=== PATIENT | female | born 1960 | race African-American/Black ===

== ENCOUNTER 2016-03-09 15:33 | Emergency (ER) | payer SELFPAY ==
[2016-03-09] MEDS ORDERED: FENTANYL CITRATE INJ/PF 100 MCG/2 ML AMPUL ONE ×4 (16:42→18:19)
--- NOTE | 2016-03-09 16:56 | EKG REPORT ---
SEVERITY:- NORMAL ECG - SINUS RHYTHM : Confirmed by: Amberly Mehta MD 09-Mar-2016 16:56:24
[2016-03-09 16:57] LABS: ABSOLUTE LYMPHOCYTES (AUTO) 1.8 10^3/uL (0.5-4.7); ABSOLUTE MONOCYTES (AUTO) 0.7 10^3/uL (0.1-1.4); ABSOLUTE NEUT (AUTO) 4.2 10^3/uL (1.7-8.2); BASOPHILS % (AUTO) 0.6 % (0-2); EOSINOPHILS % (AUTO) 0.4 % (0-6); HEMATOCRIT 36.6 % (36.0-47.0); HEMOGLOBIN 12.5 g/dL (12.0-15.5); HGB HCT DIFFERENCE 0.9; LYMPHOCYTES % (AUTO) 26.9 % (13-45); MEAN CORPUSCULAR HEMOGLOBIN 28.4 pg (27.0-33.4); MEAN CORPUSCULAR VOLUME 84 fl (80-97); MONOCYTES % (AUTO) 10.3 % (3-13); RED BLOOD COUNT 4.38 10^6/uL (3.72-5.28); RED CELL DISTRIBUTION WIDTH 14.3 % (11.5-14.0); SEGMENTED NEUTROPHILS % (AUTO) 61.8 % (42-78); WHITE BLOOD COUNT 6.8 10^3/uL (4.0-10.5)
--- NOTE | 2016-03-09 17:03 | ER Document Report ---
ED General - General Information source: Patient - HPI Patient complains to provider of: Diffuse Onset: Just prior to arrival Onset/Duration: Sudden Associated symptoms: None Similar symptoms previously: No <JONI PEREZ - Last Filed: 03/09/16 19:44> <SHAYY MERCER - Last Filed: 03/18/16 01:18> - General Chief Complaint: Syncope Stated Complaint: SYNCOPAL EPISODE Notes: Patient is a 55-year-old female presenting to the emergency department concerned of acute onset of severe diffuse abdominal pain which radiates straight into her back and syncopal episode. She states she was fine this morning, and the pain started just after lunch at approximately 1430. Patient has a history of hypertension which has been untreated for the past 2 months. Patient states that the pain does not even compared to labor, it is higher than it 10 on a scale of 1-10. Patient has a history of gastric bypass in 2010 and family history of heart disease. (JONI PEREZ) Past Medical History - General Information source: Patient - Social History Smoking Status: Never Smoker Cigarette use (# per day): No Chew tobacco use (# tins/day): No Family History: Reviewed & Not Pertinent, Hyperlipidemia, Hypertension - Past Medical History Cardiac Medical History: Reports: Hx Hypertension Past Surgical History: Reports: Hx Cholecystectomy, Hx Gastric Bypass Surgery - 2010 <JONI PEREZ - Last Filed: 03/09/16 19:44> Review of Systems - Review of Systems Constitutional: No symptoms reported EENT: No symptoms reported Cardiovascular: See HPI, Syncope Respiratory: No symptoms reported Gastrointestinal: See HPI, Abdominal pain, Nausea, Vomiting Genitourinary: No symptoms reported Female Genitourinary: No symptoms reported Musculoskeletal: No symptoms reported Skin: No symptoms reported Hematologic/Lymphatic: No symptoms reported Neurological/Psychological: No symptoms reported -: Yes All other systems reviewed and negative <JONI PEREZ - Last Filed: 03/09/16 19:44> Physical Exam - Vital signs Interpretation: Hypertensive - General General appearance: Alert - HEENT Head: Normocephalic, Atraumatic Eyes: Normal Pupils: PERRL - Respiratory Respiratory status: No respiratory distress Chest status: Nontender Breath sounds: Normal Chest palpation: Normal - Cardiovascular Rhythm: Regular Heart sounds: Normal auscultation Murmur: No Pulses: Normal: Radial, Femoral Normal capillary refill: Yes - Abdominal Inspection: Healed incision Tenderness: Tender - Diffuse tenderness to palpation. No rigidity. Active bowel sounds. - Back Back: Normal, Nontender - Not tender to palpation, patient states the pain is deep inside. - Extremities General upper extremity: Normal inspection, Nontender, Normal color, Normal ROM , Normal temperature General lower extremity: Normal inspection, Nontender, Normal color, Normal ROM , Normal temperature - Neurological Neuro grossly intact: Yes Cognition: Normal Orientation: AAOx4 [place] Coma Scale Eye Opening: Spontaneous [place] Coma Scale Verbal: Oriented [place] Coma Scale Motor: Obeys Commands Baljinder Coma Scale Total: 15 Speech: Normal Motor strength normal: LUE, RUE, LLE, RLE - Psychological Associated symptoms: Normal affect, Normal mood - Skin Skin Temperature: Warm Skin Moisture: Dry Skin Color: Pale <JONI PEREZ - Last Filed: 03/09/16 19:44> Course - Laboratory Result Diagrams: 03/09/16 16:40 03/09/16 16:40 - Consults Dr. Morley Time consulted: 16:46 Osei Time consulted: 17:02 Woo Time consulted: 17:17 <JONI PEREZ - Last Filed: 03/09/16 19:44> - Laboratory Result Diagrams: 03/09/16 16:40 03/09/16 16:40 <SHAYY MERCER - Last Filed: 03/18/16 01:18> - Re-evaluation Re-evalutation: 03/09/16 17:21 I personally performed the services described in the documentation, reviewed and edited the documentation which was dictated to my scribe in my presence, and it accurately records my words and actions. Patient presents emergency from acute onset of severe abdominal pain back pain and syncope. Says she's never had pain like this in her life to cause her to pass out at work. Upon history taking the past several months she's had abdominal pain after eating but has not sought any treatment for it. Nor has she been on her blood pressure medications on a regular basis. On ED arrival her blood pressures 169/109 on the monitor heart rate is 68 respiratory rate 1800% O2 sat. I immediately assessed at the bedside acute clinical concerns with the mccain pain back pain elevated blood pressure and syncope. 2 large bore IVs established called CT scan or signing consent emergently went to the CT scanner with her called the radiologist from the CT scanner and call me right back and said the patient has acute mesenteric ischemia. At this point bilateral upper blood pressures were obtained 159/94 in the right 162/89 on the left. Given 2 doses of IV fentanyl which is controlled the pain. Serial abdominal examinations no tenderness guarding rebound rigidity equal bilateral dorsalis pedis posterior tibial and femoral pulses with good perfusion. Immediately started on a heparin drip. I contacted Dr. farooq who is our surgeon here he is not vascular surgery cannot manage this patient but is asked to do an ED consult prior to transfer. Spoke with by [facility] the vascular surgeon accepted at once to go [facility] via helicopter. And currently waiting for the ER physician calling back at this point. Patient is currently awake alert with pain control. 03/09/16 19:57 Dr. Farooq at bedside discussing situation with patient and daughter. After a long discussion and weighing the risks and the benefits we were told that the helicopter was not flying. He with antacids with getting a ground crew together. He spoke with the patient and family member daughter at the bedside and decision was made to take the patient to the operating room to try to on to force potential SMA vein potentially restore blood flow and resected part are: If it had been necrotic. Patient gave consent was on the way to the operating room EMS arrived for transfer to [facility]. At this point I was in taking care of critical trauma patient. The transport team stated they could not wait until the surgery was done at they would have to leave at this point. The ED staff in conjunction with the patient contacted Dr. Miranda who told them to let the patient be transferred at this point. Patient with significant risk factors for necrosis of the bowel potentially requiring intraoperative repair. I did speak with the accepting vascular surgeon at [facility] who will be accepting the patient to the emergency department. The refiner operator tried to call the emergency department, and stated to me that they stated that the charge nurse would call me back. No one ever called me back from the emergency department to accept the patient. I was told that the patient was being accepted under the vascular surgeon. patient is in serious condition but stable for transport to the [facility] with a vascular surgeon which we do not currently have at our facility. (SHAYY MERCER) - Vital Signs Vital signs: Temp Pulse Resp BP Pulse Ox 13 178/104 H 94 03/09/16 17:01 03/09/16 16:13 03/09/16 17:01 - Laboratory Laboratory results interpreted by me: 03/09/16 03/09/16 16:40 16:40 RDW 14.3 H BUN 21 H Glucose 126 H (JONI PEREZ) (SHAYY MERCER) - Consults Dr. Morley Reason for consultation: 03/09/16 16:[address] with patient and contacted Dr. Morley to inform her that the patient's CT will be headed her way. Dr. Morley confirms and states that she will review [facility]. (JONI PEREZ) [facility] Reason for consultation: 03/09/16 17:02 Contacted [facility]. They will have doctor return phone call. (JONI PEREZ) [facility] Reason for consultation: 03/09/16 17:[address] Berkowitz about patient's case. Dr. Berkowitz recommends ED to ED transfer. Will await ED phone call. (JONI PEREZ) Critical Care Note - Critical Care Note Total time excluding time spent on procedures (mins): 70 <SHAYY MERCER - Last Filed: 03/18/16 01:18> Discharge <JONI PEREZ - Last Filed: 03/09/16 19:44> <SHAYY MERCER - Last Filed: 03/18/16 01:18> - Discharge Clinical Impression: Acute mesenteric ischemia Condition: Serious Disposition: [facility] Scribe Documentation - Scribe acting as scribe for :: Kwan <JONI PEREZ - Last Filed: 03/09/16 19:44> <SHAYY MERCER - Last Filed: 03/18/16 01:18> - Scribe Written by Scribe:: SHAYY MERCER DO, SCRIBE 03/09/16 [id number] (JONI PEREZ) (SHAYY MERCER)
[2016-03-09] MEDS: HEPARIN SODIUM,PORCINE/D5W 25,000 UNIT/250 ML RTUINJ IV ONE (17:10)
[2016-03-09 17:21] LABS: ALANINE AMINOTRANSFERASE 22 U/L (9-52); ALBUMIN 3.8 g/dL (3.5-5.0); ALKALINE PHOSPHATASE 119 U/L (38-126); ANION GAP 11 (5-19); ASPARTATE AMINO TRANSFERASE 26 U/L (14-36); BILIRUBIN,TOTAL 0.4 mg/dL (0.2-1.3); BLOOD UREA NITROGEN 21 mg/dL (7-20); CALCIUM 9.4 mg/dL (8.4-10.2); CARBON DIOXIDE 27 mmol/L (22-30); CHLORIDE 105 mmol/L (98-107); CREATINE KINASE 97 U/L (30-135); CREATININE RESULT 0.73 mg/dL (0.52-1.25); GLUCOSE 126 mg/dL (75-110); POTASSIUM 3.8 mmol/L (3.6-5.0); SODIUM 143.1 mmol/L (137-145); TOTAL PROTEIN 6.8 g/dL (6.3-8.2)
[2016-03-09] MEDS ORDERED: ONDANSETRON HCL INJ/PF 4 MG/2 ML SDV ONE (17:38)
[2016-03-09 17:43] VITALS: BP 178/104
[2016-03-09 18:15] LABS: CREATINE KINASE MB 0.34 ng/mL (<4.55)
[2016-03-09 18:18] LABS: TROPONIN I < 0.012 ng/mL
[2016-03-09] MEDS ORDERED: HYDROMORPHONE HCL INJ/PF 2 MG/ML AMPULE ONE (18:19)
[2016-03-09] MEDS ORDERED: MIDAZOLAM 2 MG/2 ML INJ ONE (18:20)
[2016-03-09] MEDS ORDERED: PROPOFOL INJ 200 MG/20 ML VIAL IV ONE (18:20)
--- NOTE | 2016-03-09 21:09 | PDOC CONSULTATION ---
History of Present Illness Admission Date/PCP: 03/09/16 18:07 History of Present Illness: ALBERTO POLK is a 55 year old female who had the acute onset of severe abdominal pain after eating at 2:30 PM today. She complains that the pain was 11/10. The pain was constant. The pain radiated to her back. She took 2 Aleve to no avail. She reports that in addition to the abdominal pain she had chills, subjective fever, nausea, dry heaves but no significant vomitus, dizziness/lightheadedness, shortness of breath due to pain. She also reports that she had some bowel incontinence while dry heaving. She reports that she had a soft to loose bowel movement earlier today, which is normal for her. She denies any blood in her stools, pain with defecation, urinary symptoms, chest pain, seizures, tremors. She has a history of open gallbladder surgery in 1985 , gastric bypass surgery in 2010 and abdominoplasty in 2012. She reports that for the last 4-5 years, she has experienced intermittent abdominal pain. She reports this pain occurs approximately every 2 weeks. The pain is severe and is accompanied by bloating and a firm abdomen. She reports the pain has been so bad in the past that she has passed out. She denies passing out today. Typically she takes 2 Aleve for these episodes and gradually experiences resolution. She reports the pain today was more severe than her usual bout of abdominal pain, but her abdomen is not as bloated or firm. A CT scan was performed urgently by ER staff which showed whirling of the mesentery and questionable superior mesenteric vein compression/congestion. Surgery was consulted. Medications: Metoprolol 10 mg. Aleve when necessary, usually 2 tabs every 2 weeks. Allergies: Hydrocodone, lethargy. Past Medical History Cardiac Medical History: Reports: Hypertension Neurological Medical History: Reports: Migraine - None in 4-5 years. Past Surgical History Past Surgical History: Reports: Cholecystectomy, Gastric Bypass Surgery - 2010, Other - Abdominoplasty 2012, breast reduction 2009. Social History Information Source: Patient Lives with: Alone Smoking Status: Never Smoker Frequency of Alcohol Use: Rare Hx Recreational Drug Use: No Drugs: None Hx Prescription Drug Abuse: No Family History Family History: CAD, DM, Hypertension, Other - Congestive heart failure Parental Family History Reviewed: Yes Children Family History Reviewed: Yes Sibling(s) Family History Reviewed.: Yes Review of Systems All systems: reviewed and no additional remarkable complaints except as stated Physical Exam Vital Signs: Temp Pulse Resp BP Pulse Ox 13 178/104 H 94 03/09/16 17:01 03/09/16 16:13 03/09/16 17:01 General appearance: PRESENT: no acute distress Eye exam: PRESENT: EOMI Mouth exam: PRESENT: tongue midline Respiratory exam: PRESENT: clear to auscultation yaya Cardiovascular exam: PRESENT: RRR GI/Abdominal exam: PRESENT: soft, tenderness - Tender primarily in the right lower quadrant with some minimal tenderness in the left lower quadrant as well. , other - Multiple healed incisions.. ABSENT: firm, guarding, rebound, rigid Extremities exam: ABSENT: pedal edema Musculoskeletal exam: ABSENT: deformity Neurological exam: PRESENT: alert - Initially somewhat sleepy/sedated, resolved rapidly., oriented to person, oriented to place, oriented to time, oriented to situation Skin exam: PRESENT: normal color. ABSENT: jaundice Results Laboratory Results: White count normal at 6.8; and percent neutrophils and absolute neutrophils are in normal ranges as well. Hemoglobin 12.5. Platelets 355. BMP essentially normal. Sodium 143, potassium 3.8, chloride 105, bicarbonate 27 , BUN 21-elevated, creatinine 0.73, glucose 126-elevated. Lactic acid normal at 1.5. CK normal at 97. CK-MB and troponin are negative. LFTs normal: protein 6.8, albumin 3.8, total bilirubin 0.4, direct bilirubin 0, AST 26, ALT 22, alkaline phosphatase 119. Impressions: Abdomen/Pelvis CTA 03/09/16 00:00 IMPRESSION: 1. Findings consistent with small bowel volvulus with swirling of the vascular structures about the axis of the SMA. There is associated venous obstruction with mesenteric edema and bowel wall thickening. 2. Status post previous gastric bypass surgery. 3. Moderate biliary tree dilatation without evidence of obstructing abnormality. MRCP should be considered for further evaluation. 4. 3 cm fluid collection in the anterior abdominal wall at the umbilicus with differential including urachal cyst and fluid in a hernia sac. 5. Status post cholecystectomy. Chest/Abdomen CTA 03/09/16 00:00 IMPRESSION: 1. No evidence of pulmonary embolus. 2. No significant abnormality involving the thoracic aorta. 3. 1.4 cm nodule in left lobe of the thyroid for which ultrasound should be considered. Status: Image reviewed by me Assessment & Plan - Diagnosis (1) MESENTERIC VOLVULUS Is this a current diagnosis for this admission?: YesPlan: See below (2) Chronic mesenteric ischemia Is this a current diagnosis for this admission?: YesPlan: Once consulted by the ED physician with the CT findings, I recommended transfer to a tertiary care center with vascular surgeons/vascular interventionalists, as well as immediate initiation of heparin drip. Heparin drip was initiated within minutes, as it was running when I presented to the ED to assess the patient shortly after being called. Given her history of severe bouts of abdominal pain which resolved spontaneously, she may have intermittent volvulus of her mesentery. Today her abdominal pain started out as very severe, but improved during her time in the EGD. This may be attributable to a spontaneous detorsing, and/or the initiation of the heparin drip. She did have short acting narcotics prior to my arrival, but any effects as evidenced by sleepiness seemed to wear off shortly after beginning the interview, thus I did not feel pain meds were masking any potential pain. Despite what would seem a significant CT finding, the patient's exam was not peritoneal and her labs were essentially normal, perhaps indicating adequate flow through the superior mesenteric vein. I spoke the radiologist reviewing the images and report, and my impression in conversation from the radiologist was that complete occlusion was not definitive, but rather findings of vascular compression/congestion were apparent. Initially air transport was available, however, it was then canceled due to weather. The decision to proceed to the OR for exploratory laparotomy was weighed against the timing of ground transport. At this point ground transport was available. I spoke with the radiologist as well as Dr. Ron Mondragon and Dr. Guzman Monterroso. Dr. Mondragon and Dr. Monterroso were available to help with the case should we proceed to the OR. After reviewing the case, they recommend transfer. Given the lack of an acute abdomen and normal labs, as well as the immediate availability of ground transport, I recommended ground transport to [facility] with a vascular surgeon aware of the case and accepting transfer.
== END 2016-03-09 19:59 | disposition short-term general hospital (02) ==
LOC: ER 15:33 → EH 18:07 → UNDOADMOB 18:07 → UNDODISOB 18:44 → ER 19:59
DX: K55.019 Acute (reversible) ischemia of small intestine, extent unspecified (principal); K56.2 Volvulus; R55 Syncope and collapse; R10.9 Unspecified abdominal pain; I10 Essential (primary) hypertension; Z98.84 Bariatric surgery status; Z90.49 Acquired absence of other specified parts of digestive tract
CPT/HCPCS: 93005; 99291; 51702; 96375; 96365; 96366; 36415; 82553; 82550; 85025; 80053; 84484; 83605; 71275; 74174; 93010; J1644; J3010; J2405; J1170; J2250; J2704

== ENCOUNTER 2016-08-24 20:01 | Emergency (ER) | payer BC ==
[2016-08-24 20:12] VITALS: BP 155/99
[2016-08-24] MEDS ORDERED: OXYMETAZOLINE HCL 0.05% NASAL SPRAY 15 ML BOTTLE NASL ONE (22:05)
[2016-08-24] MEDS ORDERED: BENZONATATE 100 MG CAPSULE PO ONE (22:05)
--- NOTE | 2016-08-24 22:08 | ER Document Report ---
ED General - General Chief Complaint: Cough Stated Complaint: COUGH Time Seen by Provider: 08/24/16 21:34 Notes: Patient is a 56-year-old female who presents with sinus pressure over the maxillary sinuses bilaterally as well as with persistent cough. Patient reports that when she has severe spasms of coughing the pressure in her face becomes so bad that she feels that she develops spotting and blurring of her vision in her right eye. This does resolve after the coughing resolves. Does describe the pain in the face as a dull, pressure like pain that is constant. Nothing improves or worsens her symptoms. She has not seen her primary care doctor regarding today's concerns. Reports a history of similar symptoms in the past with prior sinus infections. Denies any associated fever, confusion, headache or neck pain. No vomiting. TRAVEL OUTSIDE OF THE [place] IN LAST 30 DAYS: No - Related Data Allergies/Adverse Reactions: No Known Allergies Allergy (Unverified 08/24/16 20:05) Past Medical History - General Information source: Patient - Social History Smoking Status: Never Smoker Frequency of alcohol use: None Drug Abuse: None Lives with: Family Family History: CAD, DM, Hypertension, Other - Congestive heart failure Patient has suicidal ideation: No Patient has homicidal ideation: No - Past Medical History Cardiac Medical History: Reports: Hx Hypertension Neurological Medical History: Reports: Hx Migraine - None in 4-5 years. Renal/ Medical History: Denies: Hx Peritoneal Dialysis Past Surgical History: Reports: Hx Cholecystectomy, Hx Gastric Bypass Surgery - 2010, Other - Abdominoplasty 2012, breast reduction 2009. Review of Systems - Review of Systems Notes: Constitutional: Negative for fever. HENT: Positive for sinus pressure Eyes: Positive for visual changes. Cardiovascular: Negative for chest pain. Respiratory: Negative for shortness of breath. Positive for cough Gastrointestinal: Negative for abdominal pain, vomiting or diarrhea. Genitourinary: Negative for dysuria. Musculoskeletal: Negative for back pain. Skin: Negative for rash. Neurological: Negative for headaches, weakness or numbness. 10 point ROS negative except as marked above and in HPI. Physical Exam - Vital signs Vitals: Temp Pulse Resp BP Pulse Ox 97.9 F 66 16 155/99 H 99 08/24/16 20:11 08/24/16 20:11 08/24/16 20:11 08/24/16 20:11 08/24/16 20:11 Interpretation: Hypertensive Notes: PHYSICAL EXAMINATION: GENERAL: Well-appearing, well-nourished and in no acute distress. HEAD: Atraumatic, normocephalic. EYES: Pupils equal round and reactive to light, extraocular movements intact, sclera anicteric, conjunctiva are normal. ENT: nares patent, mild bilateral tonsillar erythema without exudates. Moist mucous membranes. Pain on palpation of the maxillary sinuses bilaterally NECK: Normal range of motion, bilateral anterior cervical lymphadenopathy that is tender to palpation LUNGS: Breath sounds clear to auscultation bilaterally and equal. No wheezes rales or rhonchi. HEART: Regular rate and rhythm without murmurs ABDOMEN: Soft, nontender, normoactive bowel sounds. No guarding, no rebound. No masses appreciated. EXTREMITIES: Normal range of motion, no pitting or edema. No cyanosis. NEUROLOGICAL: No focal neurological deficits. Moves all extremities spontaneously and on command. PSYCH: Normal mood, normal affect. SKIN: Warm, Dry, normal turgor, no rashes or lesions noted. Course - Re-evaluation Re-evalutation: 08/24/16 22:07 Patient presents with signs and symptoms most consistent with a viral base sinusitis with associated bronchitis. To clarify a triage concerned, patient has not had any loss of vision to the right eye. She reports that when she has severe episodes of coughing she feels like her vision in the right eye spots and becomes blurred for several seconds and then resolved. I believe this is able to be easily attributed to her sinus pressure likely causing increased ocular pressure in the setting of episodes of coughing that then resolves when her coughing stops. She denies any field cut or loss of vision at the time of my assessment. Bedside visual acuity is 20/20 bilaterally. She has no entrapment. Extraocular motions are intact bilaterally. She has bilateral anterior cervical lymphadenopathy as well as submandibular lymphadenopathy. Mild pharyngitis on exam without tonsillar exudates. Will obtain an x-ray given her duration of cough to exclude an acute pneumonia which have a low clinical suspicion for. Will treat symptomatically with Tessalon Perles, Afrin nasal spray and saline irrigation of the sinuses. At this time will discharge with return precautions and follow-up recommendations. Verbal discharge instructions given a the bedside and opportunity for questions given. Medication warnings reviewed. Patient is in agreement with this plan and has verbalized understanding of return precautions and the need for primary care follow-up in the next 24-72 hours. - Vital Signs Vital signs: Temp Pulse Resp BP Pulse Ox 97.9 F 66 16 155/99 H 99 08/24/16 20:11 08/24/16 20:11 08/24/16 20:11 08/24/16 20:11 08/24/16 20:11 - Diagnostic Test Radiology reviewed: Image reviewed, Reports reviewed Radiology results interpreted by me: 08/25/16 03:04 Chest x-ray: No acute infiltrate or pneumothorax Discharge - Discharge Clinical Impression: Bronchitis Sinusitis Qualifiers: Sinusitis location: maxillary Chronicity: acute Recurrence: non-recurrent Qualified Code(s): J01.00 - Acute maxillary sinusitis, unspecified Condition: Good Disposition: HOME, SELF-CARE Additional Instructions: You were seen for symptoms most consistent with bronchitis. Your viral illness is also causing the sinus pressure you are experiencing. This can take up to 12 weeks to fully resolve. Please follow-up with your primary doctor in the next 2- 3 days. Return if you develop worsening cough, vomiting, fever >100.4, pass out , begin coughing blood, or have any other symptoms that are concerning to you. Please use the medications prescribed today as directed. Tessalon Perles: You can take 1 pill every 8 hours as needed for coughing Afrin nasal spray: You can use 2 sprays in each nostril twice daily for up to 3 days. Do not exceed this period of time Saline washes: You should buy a Willa pot or a similar product and irrigate your sinuses to reduce the pressure. Prescriptions: Benzonatate [Tessalon Perle 100 mg Capsule] 100 mg PO Q8HP PRN #40 cap PRN Reason: Forms: Parent Work Note
--- NOTE | 2016-08-24 22:34 | RADIOLOGY REPORT (SQ) ---
EXAM DESCRIPTION: CHEST SINGLE VIEW COMPLETED DATE/TIME: 08/24/2016 10:13 pm REASON FOR STUDY: cough COMPARISON: None. EXAM PARAMETERS: NUMBER OF VIEWS: One view. TECHNIQUE: Single frontal radiographic view of the chest acquired. RADIATION DOSE: NA LIMITATIONS: None. FINDINGS: LUNGS AND PLEURA: No opacities, masses or pneumothorax. No pleural effusion. MEDIASTINUM AND HILAR STRUCTURES: No masses. Contour normal. Mildly tortuous aorta. HEART AND VASCULAR STRUCTURES: Heart normal in size. Normal vasculature. BONES: No acute findings. HARDWARE: None in the chest. OTHER: No other significant finding. IMPRESSION: NO ACUTE RADIOGRAPHIC FINDING IN THE CHEST. TECHNICAL DOCUMENTATION: JOB ID: [id number]
== END 2016-08-24 22:50 | disposition home or self-care (01) ==
LOC: ER 20:01
DX: J01.00 Acute maxillary sinusitis, unspecified (principal); J40 Bronchitis, not specified as acute or chronic; I10 Essential (primary) hypertension; Z98.84 Bariatric surgery status; Z90.49 Acquired absence of other specified parts of digestive tract
CPT/HCPCS: 99283; 71010; J3490